=== PATIENT | male | born 1965 | race Two or more races ===

== ENCOUNTER 2024-08-17 10:09 | Outpatient (REF) | payer MEDICAID, SELFPAY ==
--- NOTE | ~2024-08-17 | XR_ITS ---
EXAMINATION: XR KNEE, RIGHT CLINICAL INFORMATION: M25.561 - Pain in right knee COMPARISON: None available. TECHNIQUE: 3 views of the right knee including AP upright FINDINGS: Mild osteoarthritis of patellofemoral compartment. Medial compartment: Normal. Lateral compartment: Question slight joint space narrowing versus projectional artifact. Surrounding bone and soft tissues unremarkable.. XR/XR knee RT 3V IMPRESSION: Mild osteoarthritis Electronically signed by: Daniel Schneider MD 08/23/2024 07:10 AM BLOSSOM
== END 2024-08-17 10:10 | disposition home or self-care (01) ==
LOC: HO.HOSX 10:09
PROVIDERS: Visit Provider Orthopaedic Surgery
DX: M25.561 Pain in right knee (principal); S83.241A Other tear of medial meniscus, current injury, right knee, initial encounter
CPT/HCPCS: 73562; 99202

== ENCOUNTER 2024-08-17 12:59 | Outpatient (AMB) | payer MEDICAID, SELFPAY ==
--- NOTE | 2024-08-17 13:09 | MHC.OFFVIS ---
Vital Signs 08/17/24 13:10 Height 5 ft 2 in Weight 170 lb BMI 31.1 Intake Visit Reasons: Right knee pain and giving way Intake Note: Khanh is a 59 year old male who presents with complaints of progressively worsening right knee pain and giving way. The patient states that he 1st injured his right knee approximately 6 months ago when he twisted his knee while going up a ladder. The patient states that approximately 1 month later he reaggravated his knee while going down the stairs. Most of the pain is along the medial aspect of his knee. He states that his right knee will give out several times per day. He has failed the last 6 weeks of conservative treatment which has included Tylenol, anti-inflammatory medicines, topical creams and a home physical therapy program. The patient has not been able to play tennis because of his pain and mechanical symptoms. Allergies penicillin V Allergy (Severe, Verified 08/17/24 13:11) Hives Medication List - Last Reconciled 08/17/24 by Masood Leyva MD acetaminophen 1,000 mg PO Q6H PRN atorvastatin 20 mg PO DAILY cholecalciferol (vitamin D3) 25 mcg PO DAILY clotrimazole 1% appl topical BID nabumetone 500 mg PO BID naproxen 500 mg PO BID omeprazole 20 mg PO QAM tamsulosin 0.8 mg PO DAILY Physical Exam Vital Signs: BMI result Body Mass Index 31.1 Const Other: Well-nourished well-developed very friendly male awake alert and oriented x3 in no acute distress Extrem Other: Bilateral lower extremity examination shows good capillary refill, no skin lesions noted, normal sensation light touch Right knee examination shows a minimal effusion, minimal crepitus with range of motion, tenderness along his medial joint line, positive Lanette's test, no instability Results Reviewed Results Reviewed: Standing full weight-bearing x-rays of the patient's right knee show mild diffuse joint space narrowing, no acute bony abnormalities Assessment & Plan Assessment & Plan (1) Tear of medial meniscus of right knee: Code(s): S83.241A - Other tear of medial meniscus, current injury, right knee, initial encounter Category: Medical Plan Mr. Main presents with progressively worsening right knee pain and mechanical symptoms most likely due to a medial meniscus tear. Thus, I will send the patient for an MRI of his right knee for further evaluation. I will see him back once the MRI is completed to discuss the findings and treatment options. He will contact me prior to that time should his symptoms worsen in any way. Feel free to call me at any time should questions regarding his orthopedic management arise. Thank you very much for asking me to see this very friendly gentleman. I spent 20 minutes in reviewing the patient's records and imaging studies, seeing the patient and documenting in the medical record. Orders: Orders MR knee RT wo con Today S83.241A - Other tear of medial meniscus, current injury, right knee, initial encounter XR knee RT 3V Today M25.561 - Pain in right knee Coding Level of Care Code New Pt Level 3 (68048) Complex EM visit Add On G2211 Diagnoses Tear of medial meniscus of right knee S83.241A
[2024-08-17 13:10] VITALS: BMI 31.1
== END 2024-08-17 13:27 | disposition home or self-care (01) ==
PROVIDERS: PCP Specialist; Visit Provider Orthopaedic Surgery
DX: S83.241A Other tear of medial meniscus, current injury, right knee, initial encounter (principal)
CPT/HCPCS: 99203

== ENCOUNTER → 2024-09-21 16:50 | Outpatient (BNV) | payer MEDICAID, SELFPAY | PROVIDERS: Visit Provider Radiology Diagnostic Radiology | DX: S83.281A Other tear of lateral meniscus, current injury, right knee, initial encounter (principal); S83.411A Sprain of medial collateral ligament of right knee, initial encounter; S83.511A Sprain of anterior cruciate ligament of right knee, initial encounter; M71.21 Synovial cyst of popliteal space [Baker], right knee | CPT/HCPCS: 73721 ==

== ENCOUNTER 2024-09-21 16:55 | Outpatient (REF) | payer MEDICAID, SELFPAY | END 2024-09-21 16:56 | disposition home or self-care (01) | LOC: HO.MRI 16:55 | PROVIDERS: Visit Provider Orthopaedic Surgery | DX: S83.241A Other tear of medial meniscus, current injury, right knee, initial encounter (principal) | CPT/HCPCS: 73721 ==

== ENCOUNTER 2024-10-15 08:37 | Outpatient (AMB) | payer MEDICAID, SELFPAY ==
--- NOTE | 2024-10-15 08:38 | A.OFFVIS_ITS ---
Intake Visit Reasons: TH- Right Knee MRI Review Intake Note: Khanh is a 59 year old male who presents with complaints of progressively worsening right knee pain and giving way. The patient states that he 1st injured his right knee approximately 6 months ago when he twisted his knee while going up a ladder. The patient states that approximately 1 month later he reaggravated his knee while going down the stairs. Most of the pain is along the medial aspect of his knee. He states that his right knee will give out several times per day. He has failed the last 6 weeks of conservative treatment which has included Tylenol, anti-inflammatory medicines, topical creams and a home physical therapy program. The patient has not been able to play tennis because of his pain and mechanical symptoms. Social Worker Palliative Care Required: Yes Social Worker Palliative Care Language: Design Maintenance Engineer Services: Social Worker Palliative Care Present (via phone) Social Worker Palliative Care Name: SanchoBRIAN whitlock/GAEL Information Interpreted: non-clinical & clinical Allergies penicillin V Allergy (Severe, Verified 10/15/24 08:41) Hives Medication List - Last Reconciled 10/15/24 by Masood Leyva MD acetaminophen 1,000 mg PO Q6H PRN atorvastatin 20 mg PO DAILY cholecalciferol (vitamin D3) 25 mcg PO DAILY clotrimazole 1% appl topical BID nabumetone 500 mg PO BID naproxen 500 mg PO BID omeprazole 20 mg PO QAM tamsulosin 0.8 mg PO DAILY Physical Exam Const Other: telehealth Telehealth Telehealth Telehealth Platform: Telephone Location of provider rendering services: practice address Location of patient: address on file Patient Identification confirmed using: Name, : Yes Telehealth method: voice only Patient verbally consented to treatment: Yes Patient verbally consented to billing insurance company: Yes Patient informed of any privacy concerns related to visit: Yes Minutes spent on Phone/Video with Pt.: 12 Results Reviewed Results Reviewed: MRI of the patient's right knee shows a tear of the anterior cruciate ligament Assessment & Plan Assessment & Plan (1) Right knee pain: Code(s): M25.561 - Pain in right knee Category: Medical Plan Mr. Main presents with progressively worsening right knee pain and symptoms of instability due to an anterior cruciate ligament tear. I had a lengthy discussion with the patient regarding the treatment options. At this point he appears to be failing continued non operative treatments. He is interested in undergoing anterior cruciate ligament reconstructive surgery if he is a candidate for this type of procedure in order to resume playing tennis. Thus, I will arrange for him to have a consultation with my partner, Dr. Sharma, who performs this type of surgery. He will continue with his activity modifications in the meantime. Feel free to call me at any time should questions regarding his orthopedic management arise. Coding Level of Care Code Tele Est Pt Level 3 (07408) Complex EM visit Add On G2211 Diagnoses Right knee pain M25.561
== END 2024-10-15 08:50 | disposition home or self-care (01) ==
LOC: HO.HOS 08:37
PROVIDERS: PCP Physician Assistant Medical; Visit Provider Orthopaedic Surgery
DX: M25.561 Pain in right knee (principal)
CPT/HCPCS: 99213

== ENCOUNTER → 2024-10-15 08:37 | Outpatient (BNVA) | payer MEDICAID, SELFPAY | PROVIDERS: PCP Physician Assistant Medical; Visit Provider Orthopaedic Surgery ==

== ENCOUNTER 2025-01-07 08:18 | Outpatient (REF) | payer MEDICAID, SELFPAY ==
--- OUTSIDE RECORDS SUMMARY | 2025-01-08 08:34 | XMS_ITS | Clinical Summary ---
Author Organization [facility] Address [address] [place] [address] Care Team Providers Care Floor Runner Name Role Phone Mila Alex PA-C Primary Care Provider Source Comments PLEASE NOTE, if this patient is a minor, it may be UNLAWFUL to discuss sensitive information that is contained in these records (such as FAMILY PLANNING, MENTAL HEALTH or SUBSTANCE ABUSE) with the minor patient's parent or other person without the patient's specific authorization.[facility] Allergies Active Allergy Reactions Criticality Noted Date Comments Penicillin Rash 02/09/2016 Medications VITAMIN D3 25 mcg (1,000 unit) capsuleIndications :Vitamin D deficiency Take 1 Capsule by mouth once daily 30 Capsule 5 4 Active atorvastatin (LIPITOR) 20 mg tabletIndications: Mixed hyperlipidemia Take 1 Tablet by mouth once daily 90 Tablet 1 4 Active nabumetone (RELAFEN) 500 mg tabletIndications: Chronic right shoulder pain TAKE 1 TABLET BY MOUTH TWICE DAILY FOR PAIN 60 Tablet 4 4 Active omeprazole (PRILOSEC) [address] capsuleIndications :Gastroesophageal reflux disease, unspecified whether esophagitis present TAKE 1 CAPSULE BY MOUTH EVERY MORNING BEFORE BREAKFAST 90 Capsule 1 4 Active tamsulosin (FLOMAX) 0.4 mg 24 hr capsuleIndications :Benign non-nodular prostatic hyperplasia without lower urinary tract symptoms Take 2 Capsules by mouth once daily 180 Capsule 1 4 Active clotrimazole (LOTRIMIN) 1 % creamIndications:T inea pedis of both feet Apply topically 2 (two) times daily 15 g 4 Active Active Problems Problem Noted Date Diagnosed Date Hypertension 04/27/2022 Laceration 04/27/2022 Traumatic intracranial subarachnoid hemorrhage ( HCC-CMS) 04/27/2022 Skull fracture without loss of consciousness (HC C-CMS) 04/27/2022 Mixed hyperlipidemia 09/24/2021 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 Surgical resection may not be appropriate based on size and extent of rare tumor; may consider radiation oncology New daily persistent headache 05/01/2020 Hx of intracranial hemorrhage 05/01/2020 Overview (05/01/2020): Went to [facility] ER 02/20/17 as he fell off a ladder, developed repeated vomiting and blood in emesis, epistaxis after fall prior to hematemesis. headache +. CT head reported skull fx right (abrasions on left) and pneumocephalus with SAH and SDH. Transferred to [facility] for trauma evaluation/tertiary examination. CT scan demonstrated a right frontal subarachnoid hemorrhage, right temporal and frontal intraparenchymal hemorrhage, multiple sites of subdural hemorrhages, a left occipital skull fracture, and a right temporoparietal skull fracture. He was also noted to have multiple abrasions and a skin avulsion of the left elbow. At [facility], Neurosurgery evaluated patient and determined no indication for surgery. He was admitted to SICU (intercare was full) for close neurologic monitoring. At that time, he complained of a headache and nausea with emesis; however, he remained neurologically intact. Repeat CT head demonstrated increased foci of intraparenchymal hemorrhage in the right temporal and frontal lobes without shift or mass effect; the multiple subdurals were unchanged in thickness and decreased in attenuation. Despite these changes, the patient remained neurologically intact, so he was transferred to intercare. He had another repeat CT head the following morning, which showed a slight increase in intracranial edema. He continued to be neurologically intact, with only symptom of transiet dizziness with changes in position. He was evaluated by PMR, who recommended home w/ PT and speech therapy or d/c to rehab, depending on mobility status and positional vertigo on discharge. They also recommended outpatient PMR f/u for TBI. He was evaluated by physical therapy, who recommended home with services. The patient was cleared for discharge on 02/24/2017, after repeat head CT that morning demonstrated no change. At that time, his pain was controlled w/ oral medication and he was tolerating a regular diet, voiding, and ambulating. He was provided prescriptions for Tylenol, ibuprofen, and Keppra and instructed to follow-up as an outpatient with Neurosurgery and PMR (Chantell Cox or Carter Quinn in [place] ([phone]). >> Neurosurgery f/u as out pt on 03/11/17: head CT today reveals near complete resolution of his right frontal subdural hematoma. At this point, no further imaging is required as he is progressing quite well clincally and radiographically. He is educated on signs and symptoms to be concerned with and when to seek immediate medical attention. The patient is overall quite pleased with his progress and is reassured by the imaging results >> f/u CT head 05/17/17: IMPRESSION: No acute intracranial abnormality. No evidence of subdural hematoma.Encephalomalacia in the supraorbital portion of the right frontal lobe with an overall decrease in the area of right frontal lobe edema since 03/11/2017. Stable appearance of nondisplaced right occipital bone fracture. History of depression 02/20/2019 Overview (02/20/2019): Sees therapist S/P colonoscopic polypectomy 07/15/2018 Overview (07/15/2018): Don 07/04/2018 1 8 mm polyp sigmoid colon removed. Divertulosis of sigmoid RTP Colonoscopy in 5 years Arthritis of right hip 08/07/2017 Overview (08/07/2017): Seen by [facility]- DX Right hip arthritis, Plan Anti inflammatories and should patient have further difficulty refer back to [facility] Right shoulder pain 03/18/2017 Overview (05/06/2017): Seen by Ortho at [facility] on 03/12/17. Had Xrays, Dx with Impingement Rt shoulder w/ symptomatic hypertrophic AC arthropathy. Wear in anterosuperior corner w/ possible involvement of longhead of biceps. Received Joint injection. F/u as symptoms warrant. [facility] Xray 03/06/17- IMPRESSION : [facility] OT is recommended for 1x/week x 4-5 week. OT Treatment is to include: Neuromuscular Re-education. Manual Therapy. Incorp Mantherapy ( UT at nuchal line ) for h/a reduction. Obesity (BMI 30.0-34.9) 06/05/2016 Chronic right-sided low back pain with sciatica 06/05/2016 Overview (02/28/2017): [facility]- No acute cervical spine fracture by CT analysis when compared to 10/03/2013. Acute skull base fractures, as discussed above. Gastroesophageal reflux disease 06/05/2016 History of nephrolithiasis 06/05/2016 Hypercholesterolemia 03/28/2016 Benign non-nodular prostatic hyperplasia without lower urinary tract symptoms 03/28/2016 Overview (10/27/2016): Following Urology at [address]. Says that he was prescribed Flomax 0.8mg qd.. >>Urology visit [facility] 09/05/16- Current visit is for further evaluation of LUTS, ED, Hypogonadism. Continue on current medications. Labs ordered.Testing on next visit will include uroflow ,bladder scan . F/u 6 mo Vitamin D deficiency 03/28/2016 Resolved Problems Problem Noted Date Diagnosed Date Resolved Date Intracranial hemorrhage ([facility]) 05/06/2017 05/01/2020 Overview (06/25/2017): Went to [facility] ER 02/20/17 as he fell off a ladder, developed repeated vomiting and blood in emesis, epistaxis after fall prior to hematemesis. headache +. CT head reported skull fx right (abrasions on left) and pneumocephalus with SAH and SDH. Transferred to [facility] for trauma evaluation/tertiary examination. CT scan demonstrated a right frontal subarachnoid hemorrhage, right temporal and frontal intraparenchymal hemorrhage, multiple sites of subdural hemorrhages, a left occipital skull fracture, and a right temporoparietal skull fracture. He was also noted to have multiple abrasions and a skin avulsion of the left elbow. At [facility], Neurosurgery evaluated patient and determined no indication for surgery. He was admitted to SICU (intercare was full) for close neurologic monitoring. At that time, he complained of a headache and nausea with emesis; however, he remained neurologically intact. Repeat CT head demonstrated increased foci of intraparenchymal hemorrhage in the right temporal and frontal lobes without shift or mass effect; the multiple subdurals were unchanged in thickness and decreased in attenuation. Despite these changes, the patient remained neurologically intact, so [facility] He had another repeat CT head the following morning, which showed a slight increase in intracranial edema. He continued to be neurologically intact, with only symptom of transiet dizziness with changes in position. He was evaluated by PMR, who recommended home w/ PT and speech therapy or d/c to rehab, depending on mobility status and positional vertigo on discharge. They also recommended outpatient PMR f/u for TBI. He was evaluated by physical therapy, who recommended home with services. The patient was cleared for discharge on 02/24/2017, after repeat head CT that morning demonstrated no change. At that time, his pain was controlled w/ oral medication and he was tolerating a regular diet, voiding, and ambulating. He was provided prescriptions for Tylenol, ibuprofen, and Keppra and instructed to follow-up as an outpatient with Neurosurgery and PMR (Chantell Cox or Carter Quinn in [place] ([phone]). >> Neurosurgery f/u as out pt on 03/11/17: head CT today reveals near complete resolution of his right frontal subdural hematoma. At this point, no further imaging is required as he is progressing quite well clincally and radiographically. He is educated on signs and symptoms to be concerned with and when to seek immediate medical attention. The patient is overall quite pleased with his progress and is reassured by the imaging results >> f/u CT head 05/17/17: IMPRESSION: No acute intracranial abnormality. No evidence of subdural hematoma.Encephalomalacia in the supraorbital portion of the right frontal lobe with an overall decrease in the area of right frontal lobe edema since 03/11/2017. Stable appearance of nondisplaced right occipital bone fracture. Immunizations Immunization Administration Dates Next Due Flu, Preservative Free 09/01/2021,2019,07/18/2018,2016 Hep B,adult,adjuvanted (HEPLISAV) 07/14/2024,09/2023 INFLUENZA, SEASONAL, INJECTABLE 05/29/2016 INFLUENZA, SEASONAL, INJECTA BLE, PRESERVATIVE FREE 05/29/2016 Influenza (FLUBLOK),recombinant,injectable,pres ervative Free 07/14/2024 Moderna COVID-19 Vaccine, re d cap blue label, 12+ Primary Series 09/21/2021,01/07/2021,12/10/2020 TDAP 04/16/2018 ZOSTER VACCINE, RECOMBINANT (SHINGRIX) 04/27/2022,12/07/2021 Family History Relation Name Status Comments Brother Alive Father Mother Alive Sister Alive Social History Tobacco Use Types Packs/Day Years Used Date Smoking Tobacco: Former Smokeless Tobacco: Never Tobacco Cessation:Counseling Given: No Alcohol Use Standard Drinks/Week Comments No 0 (1 standard drink = 0.6 oz pur e alcohol) Social Connections Answer Date Recorded Connectedness 1 01/22/2024 Financial Resource Strain Answer Date R ecorded Financial Resource Strain 1 2023 Stress Answer Date Recorded Stress 1 01/22/2024 Physical Activity Answer Date Recorded Physical Activity 0 04/29/2020 Food Insecurity Answer Date Recorded Food 1 01/22/2024 Transportation Needs Answer Date Record ed Transportation 1 01/22/2024 Housing Stability Answer Date Recorded Housing 1 01/22/2024 Safety and Environment Answer Date Juan rded Safety 1 01/22/2024 Utilities Answer Date Recorded Utilities 1 01/22/2024 Employment Answer Date Recorded Stress 0 04/29/2020 Sex and Gender Information Value Date Recorded Sex Assigned at Male 09/03/2017 2:14 PM PST Legal Sex Male 11:17 AM PST Gender Identity Male 09/03/2017 2:14 PM PST Sexual Orientation Straight 09/03/2017 2: 14 PM PST Last Filed Vital Signs Vital Sign Reading Time Taken Comments Blood Pressure 122/88 07/14/2024 11:48 AM EDT Pulse 101 07/14/2024 11:48 AM EDT Temperature 36.8 ??C (98.3 ??F) 07/14/2024 11:48 AM E DT Respiratory Rate 18 07/14/2024 11:48 AM EDT Oxygen Saturation 96% 07/14/2024 11:48 AM EDT Inhaled Oxygen Concentration - - Weight 78.3 kg (172 lb 9.6 oz) 07/14/2024 11:48 AM EDT Height 157.5 cm (5' 2 ) 07/14/2024 11:48 AM EDT Body Mass Index 31.57 07/14/2024 11:48 AM EDT Plan of Treatment Health Maintenance Due Date Last Done Comments Anxiety Screening 1967 CT Colonography 2012 Fecal DNA 2012 Flexible Sigmoidoscopy 2012 FIT/gFOBT 02/25/2020 02/24/2019 [id number] ( season) 2024 09/21/2021, 01/07/2021, 12/10/2020 Alcohol and Drug Screen 09/23/2024 07/14/20 24, 01/22/2024, 11/21/2023, Additional history exists Depression Annual Screen 09/23/2024 07/14/2024, 07/0 02/2016 Annual Preventive Care Visit 01/21/202509/2023, 12/07/2021, 04/29/2020, Additional history exists Tobacco Screening 01/21/2025 01/22/2024 Lipid Screening 06/10/2025 06/10/2024, 03/0 09/2023, 08/08/2022, Additional history exists Diabetes Screening 06/10/2027 06/10/2024, 0 11/22/2023, 08/08/2022, Additional history exists Imm-DTaP/Tdap/Td (2 - Td or Tdap) 04/16/2028 018 Colonoscopy 11/23/2029 11/23/2024, 07/04/2018 Colorectal Cancer Screening 11/23/2029 HIV Screening Completed 02/20/2019 Hepatitis C Screening Completed 05/02/2020 Imm-Zoster, Recombinant Completed 04/27/2022, 12/07 Imm-Hepatitis B Completed 07/14/2024, 01/22/2024 Imm-Influenza Completed 07/14/2024, 08/23, 07/26/2020, Additional history exists Procedures Procedure Name Priority Date/Time Associated Diagnosis Comments REFERRAL SCANNED DOCUMENT 12/21/2024 3:00 AM EDT REFERRAL SCANNED DOCUMENT 12/21/2024 3:00 AM EDT REFERRAL SCANNED DOCUMENT 11/26/2024 3:00 AM EST REFERRAL FOR COLONOSCOPY Routine 11/23/2024 3:00 AM EST Colon cancer screening REFERRAL SCANNED DOCUMENT 10/15/2024 3:00 AM EST COMPREHENSIVE METABOLIC PANEL Routine 06/10/2024 8:50 AM EDT Mixed hyperlipidemia Intermittent left-sided chest pain LIPID PANEL Routine 06/10/2024 8:50 AM EDT Mixed hyperlipidemia Intermittent left-sided chest pain HEPATITIS C ANTIBODY Routine 05/02/2020 11:30 AM EDT Screening for viral disease FECAL OCCULT BLOOD HEMOCCULT X3, ANKUSH BARBARA (POCT) Routine 02/24/2019 5:13 PM EDT Health care maintenance ANTIBODY HIV-1&HIV-2 SINGLE RESULT Routine 02/20/2019 9:41 AM EDT Health care maintenance from Last 3 Months or Most Recently Relevant to Health Maintenance Results * REFERRAL SCANNED DOCUMENT (12/21/2024 3:00 AM EDT) Only the most recent of4 resultswithin the time period is included. 12/21/2024 3:00 AM EDT us PLx Pharmar Alex PA-C SCAN REFERRAL Final Result * REFERRAL FOR COLONOSCOPY (11/23/2024 3:00 AM EST) 11/23/2024 3:00 AM EST us Rosimar Alex PA-C REFERRAL Final Result * LIPID PANEL (06/10/2024 8:50 AM EDT) CHOLESTEROL, TOTAL 156 <200 mg/dL [facility] HDL CHOLESTEROL 62 > OR = 40 mg/dL [facility] TRIGLYCERIDES 125 <150 mg/dL [facility] LDL-CHOLESTEROL 73 99 mg/dL (calc) [facility] Comment: Reference range: <100 Desirable range <100 mg/dL for primary prevention; ?? <70 mg/dL for patients with CHD or diabetic patients with > or = 2 CHD risk factors. LDL-C is now calculated using the Shane calculation, which is a validated novel method providing better accuracy than the Friedewald equation in the estimation of LDL-C. Gabriel RAHMAN et al. WESTON. 2013;310(19): 2796-8542 (http://education.Thinkspeed/faq/VVY673) CHOL/HDLC RATIO 2.5 <5.0 (calc) [facility] NON-HDL CHOLESTEROL 94 <130 mg/dL (calc) [facility] Comment: For patients with diabetes plus 1 major ASCVD risk factor, treating to a non-HDL-C goal of <100 mg/dL (LDL-C of <70 mg/dL) is considered a therapeutic option. Blood Blood / Unknown 06/10/2024 8 :50 AM EDT 06/10/2024 8:51 AM EDT Narrative [facility] - 06/14/2024 5:24 AM EDT FASTING:YES us Mila Alex PA-C LAB - BLOOD DRAW Final Resul t [facility] [address] [place] [id number], [facility] [address] [place] [phone] * (ABNORMAL) COMPREHENSIVE METABOLIC PANEL (06/10/2024 8:50 AM EDT) Pathologist [facility] GLUCOSE 103(H) 65 - 99 mg/dL [facility] Comment: ?Fasting reference interval For someone without known diabetes, a glucose value between 100 and 125 mg/dL is consistent with prediabetes and should be confirmed with a follow-up test. UREA NITROGEN (BUN) 13 7 - 25 mg/dL [facility] CREATININE (blood) 0.81 0.70 - 1.30 mg/dL [facility] EGFR 103 > OR = 60 mL/min/1. 73m2 [facility] BUN/CREATININE RATIO SEE NOTE: [facility] Comment: ?? Not Reported: BUN and Creatinine are within ?? reference range. ? SODIUM 137 135 - 146 mmol/L [facility] POTASSIUM 3.9 3.5 - 5.3 mmol/L [facility] CHLORIDE 103 98 - 110 mmol/L [facility] CARBON DIOXIDE 28 20 - 32 mmol/L [facility] CALCIUM 9.2 8.6 - 10.3 mg/dL [facility] PROTEIN, TOTAL 7.0 6.1 - 8.1 g/dL [facility] ALBUMIN 4.5 3.6 - 5.1 g/dL [facility] GLOBULIN 2.5 1.9 - 3.7 g/dL (calc) [facility] ALBUMIN/GLOBULI N RATIO 1.8 1.0 - 2.5 (calc) [facility] BILIRUBIN, TOTAL 1.0 0.2 - 1.2 mg/dL [facility] ALKALINE PHOSPHATASE 65 35 - 144 U/L [facility] AST 18 10 - 35 U/L [facility] ALT 25 9 - 46 U/L [facility] Blood Blood / Unknown 06/10/2024 8 :50 AM EDT 06/10/2024 8:51 AM EDT Narrative [facility] - 06/14/2024 5:24 AM EDT FASTING:YES Mila Alex PA-C LAB - BLOOD DRAW Edited Resu lt - Final [facility] [address] [address], [facility] [address] [id number] * HEPATITIS C ANTIBODY (05/02/2020 11:30 AM EDT) HEPATITIS C VIRUS SCREEN NEGATIVE NEGATIVE [facility] Blood specimen (specimen) Blood / Unknown 05/02/2020 11:30 AM EDT 05/02/2020 4:27 PM EDT Narrative [facility] - 05/02/2020 7:12 PM EDT [employer] [address] Acid Mixer - Mariely Asencio MD PT ID [id number] ORD# [id number] Sherron Kendrick SENIOR MECHANICAL ENGINEER LAB - [place] [address], * FECAL OCCULT BLOOD HEMOCCULT X3, ANKUSH BARBARA (POCT) (02/24/2019 5:13 PM EDT) FECAL OCCULT BLOOD NEGATIVE NEGATIVE [facility] POCT FECAL OCCULT BLOOD #2 NEGATIVE NEGATIVE [facility] FECAL OCCULT BLOOD #3 NEGATIVE NEGATIVE [facility] Stool specimen (specimen) Stool specimen / Unknown 02/24/2019 5:13 PM EDT Herve Sorto MD LAB - BLOOD DRAW Final Result [facility] * HIV-1 & HIV-2 ANTIBODIES (02/20/2019 9:41 AM EDT) Pathologist [facility] HIV 1 AND 2 ANTIBODY SCREEN NEGATIVE NEGATIVE [facility] Comment: This assay is a 4th generation assay allowing for earlier detection of HIV infection by detecting the presence of the HIV-1 p24 antigen as well as the traditional antibodies to HIV type 1 (including group O) and type 2. ??Use of a 4th generation assay is the current CDC recommendation for HIV screening. Blood specimen (specimen) Blood / Unknown 02/20/2019 9:41 AM EDT 02/20/2019 10:13 AM EDT Narrative [facility] - 02/20/2019 12:39 PM EDT [employer] [address] Acid Mixer - Tawana Connelly MD PT ID [id number] ORD# [id number] Herve Sorto MD LAB - BLOOD DRAW Final Result [facility] [address] [place] [address], from Last 3 Months or Most Recently Relevant to Health Maintenance Insurance [employer] NET DENTAL [facility] [place] [address] [employer] Care Teams Floor Runner Relationship Specialty Start Date End Date Mila Alex PA-C [address] [place] [address] PCP - General FAMILY MEDICINEDARI 08/08/21
--- OUTSIDE RECORDS SUMMARY | 2025-01-08 08:34 | XMS_ITS | Encounter Summary ---
Author Organization [facility] Address [address] [place] [address] Care Team Providers Care Process Engineer Name Role Phone Mila Alex PA-C Primary Care Provider [phone] Encounter Details Date Type Department Care Team (Late st Contact Info) Description 07/04/2018 Scan Pathology [facility] [address] [place] [address] Mila Alex PA-C [address] [place] [address] Social History Tobacco Use Types Packs/Day Years Used Date Smoking Tobacco: Former Smokeless Tobacco: Never Alcohol Use Standard Drinks/Week Comments No 0 (1 standard drink = 0.6 oz pur e alcohol) Sex and Gender Information Value Date Recorded Sex Assigned at Male 09/03/2017 2:14 PM PST Legal Sex Male 11:17 AM PST Gender Identity Male 09/03/2017 2:14 PM PST Sexual Orientation Straight 09/03/2017 2: 14 PM PST documented as of this encounter Plan of Treatment Not on file documented as of this encounter Procedures Procedure Name Priority Date/Time Associated Diagnosis Comments COLONOSCOPY PATHOLOGY SCANNED DOCUMENT 07/04/2018 3:00 AM EDT documented in this encounter Results * COLONOSCOPY PATHOLOGY SCANNED DOCUMENT (07/04/2018 3:00 AM EDT) 07/04/2018 3:00 AM EDT Rosimar Alex PA-C SCAN LAB Final Result documented in this encounter Visit Diagnoses Not on filedocumented in this encounter Additional Health Concerns Infection Onset Date Last Indicated Resolved Time COVID-19 (rule-out) Comment:Added automatically based on ordered lab. 04/25/2020 04/25/2020 04/28/2020 5:00 AM P DT documented as of this encounter Care Teams Process Engineer Relationship Specialty Start Date End Date Mila Alex PA-C [address] [place] [address] PCP - General FAMILY MEDICINEDARI 08/08/21 documented as of this encounter
--- OUTSIDE RECORDS SUMMARY | 2025-01-08 08:34 | XMS_ITS | Encounter Summary ---
Author Organization [facility] Address [address] [place] [address] Care Team Providers Care Configuration Manager Name Role Phone Mila Alex PA-C Primary Care Provider [phone] Encounter Details Date Type Department Care Team ([facility] st Contact Info) Description 12/15/2020 Scan Pathology [facility] [address] [place] [address] Mila Alex PA-C [address] [place] [address] Social History Tobacco Use Types Packs/Day Years Used Date Smoking Tobacco: Former Smokeless Tobacco: Never Alcohol Use Standard Drinks/Week Comments No 0 (1 standard drink = 0.6 oz pur e alcohol) Social Connections Answer Date Recorded Social Connections and Isolation 1 04/29/2020 Financial Resource Strain Answer Date R ecorded Financial Resource Strain 1 2019 Stress Answer Date Recorded Stress 1 04/29/2020 Physical Activity Answer Date Recorded Physical Activity 0 04/29/2020 Food Insecurity Answer Date Recorded Food 1 04/29/2020 Transportation Needs Answer Date Record ed Transportation 1 04/29/2020 Housing Stability Answer Date Recorded Housing 1 04/29/2020 Safety and Environment Answer Date Juan rded Safety 1 04/29/2020 Utilities Answer Date Recorded Utilities 1 04/29/2020 Employment Answer Date Recorded Stress 0 04/29/2020 Sex and Gender Information Value Date Recorded Sex Assigned at Male 09/03/2017 2:14 PM PST Legal Sex Male 11:17 AM PST Gender Identity Male 09/03/2017 2:14 PM PST Sexual Orientation Straight 09/03/2017 2: 14 PM PST COVID-19 Exposure Response Date Recorded In the last month, have you been in contact with someone who was confirmed or suspected to have Coronavirus / COVID-19? No / Unsure 12/10/2020 9:28 AM PDT documented as of this encounter Plan of Treatment Not on file documented as of this encounter Procedures Procedure Name Priority Date/Time Associated Diagnosis Comments PATHOLOGY SCANNED DOCUMENT 12/15/2020 3:00 AM EDT documented in this encounter Results * PATHOLOGY SCANNED DOCUMENT (12/15/2020 3:00 AM EDT) 12/15/2020 3:00 AM EDT Mila Alex PA-C SCAN LAB Final Result documented in this encounter Visit Diagnoses Not on filedocumented in this encounter Additional Health Concerns Assessment Noted Time PHQ-9 Depression Total Score: 1 02/21/20 19 8:55 AM PDT documented as of this encounter Care Teams Configuration Manager Relationship Specialty Start Date End Date Mila Alex PA-C [address] [place] [address] PCP - General [facility] 08/08/21 documented as of this encounter
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
== END 2025-01-07 08:19 | disposition home or self-care (01) ==
LOC: HO.HOSX 08:18
PROVIDERS: Visit Provider Physician Assistant
DX: Z13.89 Encounter for screening for other disorder (principal)